=== PATIENT | female | born 1995 ===

== ENCOUNTER 2017-06-01 13:30 | Emergency (ER) | payer MEDICAID ==
[2017-06-01 13:43] VITALS: O2SAT 99
[2017-06-01] MEDS ORDERED: Albuterol 0.083% Inhal Sol (2.5 mg/3 mL) UD INH STA (14:31)
[2017-06-01] MEDS ORDERED: Albuterol 0.083% Inhal Sol (2.5 mg/3 mL) UD ONE (14:37)
--- NOTE | 2017-06-01 14:59 | ED PDOC ---
HPI: Allergic Reaction Time Seen by Provider: 06/01/17 13:56 Chief Complaint (Nursing): Allergic Reaction Chief Complaint (Provider): Allergic Reaction History Per: Patient History/Exam Limitations: no limitations Onset/Duration Of Symptoms: Hrs (x 2) Current Symptoms Are (Timing): Still Present Additional Complaint(s): Greer is a 22 y/o female with no known allergies or past medical history who presents to the ED for evaluation of possible allergic reaction. Patient states she took a natural supplement/multivitamin for the first time this morning and started getting red in the face, itchy, and developed hives on her arms and legs shortly afterwards. Her coworker gave her two benadryl 10-15 minutes after the symptoms started. Patient denies any current itchiness or hives but states she now has some shortness of breath and feels anxious. PMD: None LMP: Ended yesterday Past Medical History Reviewed: Historical Data, Nursing Documentation, Vital Signs Vital Signs: Last Vital Signs Temp Pulse 74 06/01/17 13:40 Resp 16 06/01/17 13:40 BP 95/67 L 06/01/17 13:40 Pulse Ox 99 06/01/17 13:40 - Medical History PMH: No Chronic Diseases - Surgical History Surgical History: No Surg Hx - Family History Family History: States: Unknown Family Hx - Social History Current smoker - smoking cessation education provided: No Alcohol: None Drugs: Denies - Allergies Allergies/Adverse Reactions: Allergies Allergy/AdvReac Type Severity Reaction Status Date / Time No Known Allergies Allergy Verified 06/01/17 13:40 Review of Systems ROS Statement: Except As Marked, All Systems Reviewed And Found Negative Constitutional: Negative for: Fever, Chills Eyes: Negative for: Vision Change ENT: Negative for: Mouth Swelling, Throat Swelling Cardiovascular: Positive for: Chest Pain (right-sided tightness). Negative for : Palpitations Respiratory: Positive for: Shortness of Breath. Negative for: Cough Gastrointestinal: Negative for: Nausea, Vomiting, Abdominal Pain, Diarrhea Skin: Positive for: Rash (hives on arms and legs, face redness), Other (itchy sensation) Physical Exam - Reviewed Nursing Documentation Reviewed: Yes Vital Signs Reviewed: Yes - Physical Exam Appears: Positive for: Well, Non-toxic, No Acute Distress Head Exam: Positive for: ATRAUMATIC, NORMOCEPHALIC Skin: Positive for: Normal Color, Warm, Dry. Negative for: Rash (urticaria) ENT: Positive for: Normal ENT Inspection, Pharynx Is (clear, uvula midline). Negative for: Tonsillar Swelling Neck: Positive for: Painless ROM, Supple Cardiovascular/Chest: Positive for: Regular Rate, Rhythm. Negative for: Murmur Respiratory: Positive for: Normal Breath Sounds (respirations even and nonlabored, speaking in full sentences). Negative for: Decreased Breath Sounds , Accessory Muscle Use, Wheezing, Respiratory Distress Gastrointestinal/Abdominal: Positive for: Soft. Negative for: Tenderness, Mass , Distended, Guarding, Rebound Extremity: Negative for: Deformity Neurologic/Psych: Positive for: Alert, Oriented (x3), Gait (steady in ED) - ECG O2 Sat by Pulse Oximetry: 99 (RA) Pulse Ox Interpretation: Normal Disposition - Clinical Impression Clinical Impression: Allergic reaction - Patient ED Disposition Is Patient to be Admitted: No Counseled Patient/Family Regarding: Diagnosis, Need For Followup - Disposition Referrals: [facility] [Provider Group] Disposition: Routine/Home Disposition Time: 15:21 Condition: STABLE Instructions: Allergy Skin Testing, Drug Allergy Forms: [employer] ([employer]), [facility] ED School/Work Excuse Print Language: VINCENTIAN - POA Present On Arrival: None Medical Decision Making Medical Decision Making: Time: 14:31 Clinical Impression: Allergic Reaction Plan: --Pepcid --Though lungs are clear with good air entry, due to patient's complaint of shortness of breath, albuterol treatment was ordered. -- Re-evaluation 1515 On re-evaluation, patient reports resolution of symptoms and denies any shortness of breath, nausea/vomiting, rash, chest pain, or anxiety. Patient remains AAOx3, in no acute distress. Neck is supple, lungs CTA, cardiac RRR, abdomen is soft and non-tender, neuro exam shows no focal findings. Patient with no evidence of respiratory distress. Dx of allergic reaction d/w the patient. Based on history, exam and diagnostic results plan will be for discharge and outpatient follow up. Patient instructed to use OTC Benadryl and Pepcid as needed if symptoms return. Advised to follow up with primary care physician/clinic in 1-2 days without fail. Return to the emergency room at any time for any new or worsening symptoms. Patient states she fully agrees with and understands discharge instructions. States that she agrees with the plan and disposition. Verbalized and repeated discharge instructions and plan. I have given the patient opportunity to ask any additional questions. Scribe Attestation: Documented by Van Kearns, acting as a scribe for Marie Miranda PA-C Provider Scribe Attestation: All medical record entries made by the Scribe were at my direction and personally dictated by me. I have reviewed the chart and agree that the record accurately reflects my personal performance of the history, physical exam, medical decision making, and the department course for this patient. I have also personally directed, reviewed, and agree with the discharge instructions and disposition.
[2017-06-01 15:28] VITALS: BP 109/70; PULSE 80; RESP 18; TEMP 98
== END 2017-06-01 15:39 | disposition home or self-care (01) ==
LOC: H.ER 13:30
DX: T78.40XA Allergy, unspecified, initial encounter (principal)